=== PATIENT | male | born 1965 | race Caucasian/White ===

== ENCOUNTER → 2023-03-17 10:44 | Outpatient (CLI) | payer OTHER, SELFPAY ==
--- NOTE | ~2023-03-17 | US_ITS ---
EXAMINATION: US scrotum doppler DATE: 03/17/2023 11:10 INDICATION: Right-sided abdominal mass TECHNIQUE: Testicular sonogram utilizing grayscale and Doppler COMPARISON: None. FINDINGS: The right testis measures 4.2 x 3.4 x 2.4 cm. The left testis measures 4.3 x 3.2 x 2.4 cm. There is normal vascular flow to both testes. The right epididymis contains a 1.5 x 1.4 x 1.4 cm cyst or spermatocele. The left epididymis is normal with normal vascular flow. There is no varicocele or hydrocele. IMPRESSION: 1. Cyst or spermatocele of the right epididymis measuring up to 1.5 cm. Reviewed, dictated and finalized at location L.
== END ==
PROVIDERS: PCP Family Medicine; Visit Provider Family Medicine
DX: N50.89 Other specified disorders of the male genital organs (principal)
CPT/HCPCS: 76870; 93976

== ENCOUNTER 2023-04-20 10:47 | Day surgery (SDC) | payer OTHER, SELFPAY ==
[2023-03-18 14:42] VITALS: BMI 34.8
[2023-03-31 09:46] VITALS: BMI 34.4
[2023-04-20 11:17] VITALS: BP 130/95; PULSE 65; RESP 16; TEMP 36.8; O2SAT 100
--- NOTE | 2023-04-20 11:22 | P.HP_ITS ---
History of Present Illness History of Present Illness Consent: Risks, benefits, and alternatives have been discussed and questions answered. Patient agrees to proceed with procedure. Chief complaint: Neoplasm Screening Narrative: Virgil Blanc is a 57 year old male Presents for screening colonoscopy. Patient's current weight appetite is are normal. Patient denies abdominal pain. He has had no bleeding. Family history is noncontributory. Review of Systems Review of Systems: Systems noncontributory. [facility] Past Medical History Medical History (Updated 02/25/23 @ 17:30 by Dominguez Maldonado MD) Anal abscess Epididymal mass Erectile dysfunction Screen for colon cancer Screening for lipid disorders Screening for prostate cancer Family History Family History Father Hypertension Lung cancer Mother No problems noted. Sibling No problems noted. 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 Gender identity (if verbalized by the patient): Male Spiritual care concerns: No Meds Home Medications and Allergies Home Medications Medication Instructions Recorded Confirmed Type sodium,potassium,mag sulfates 17.5 See Rx Instructions PO .COMPLEX 03/18/23 04/20/23 Rx gram-3.13 gram-1.6 gram oral soln #354 mL (Suprep Bowel Prep Kit) sildenafil 100 mg tablet 100 mg PO DAILY PRN sexual 04/13/23 04/20/23 Rx activity #30 tabs Allergies Allergy/AdvReac Type Severity Reaction Status Date / Time No Known Allergies Allergy Verified 04/20/23 11:10 Vital Signs Vital Signs - 24 hr 04/20/23 11:17 Temperature 98.2 F Pulse Rate 65 Respiratory Rate 16 Blood Pressure 130/95 H Pulse Oximetry 100 Oxygen Delivery Room Air Exam Narrative: Physical exam reveals patient be alert. Vital signs stable. HEENT exam is unremarkable. Patient is anicteric. Lungs are clear to auscultation and to percussion. Heart is without murmur or extra sounds. Abdomen bowel sounds present soft nontender with no hepatosplenomegaly. Digital external rectal exam is normal. Assessment and Plan Assessment and plan (1) Screen for colon cancer: Code(s): Z12.11 - Encounter for screening for malignant neoplasm of colon Status: Acute Assessment and Plan: Patient presents for neoplasia screening colonoscopy. He appears to be at average risk for colon polyps. Further recommendations may be get Tracey copy.
--- NOTE | 2023-04-20 11:33 | WPDANESEPPF ---
Anes - Initial Pre Proc Eval Procedure: Operation Date: 04/20/23 14:00 Proposed Procedures p Screening Colonoscopy - Daquan Kothari MD Date/Time: 04/20/23 11:33 Surgeon: Daquan Kothari MD Pre Op Diagnosis: Neoplasm screening Pre Op Diagnosis: Neoplasm Screening Patient Data Age: 57 Gender: M Height: 1.78 m Weight: 106 kg Last Vital Signs Temp 36.8 C 04/20/23 11:17 Pulse 65 04/20/23 11:17 Resp 16 04/20/23 11:17 BP 130/95 H 04/20/23 11:17 Pulse Ox 100 04/20/23 11:17 O2 Del Method Room Air 04/20/23 11:17 Allergies Allergy/AdvReac Type Severity Reaction Status Date / Time No Known Allergies Allergy Verified 04/20/23 11:10 Home Medications Medication Instructions Recorded Confirmed Type sodium,potassium,mag sulfates 17.5 See Rx Instructions PO .COMPLEX 03/18/23 04/20/23 Rx gram-3.13 gram-1.6 gram oral soln #354 mL (Suprep Bowel Prep Kit) sildenafil 100 mg tablet 100 mg PO DAILY PRN sexual 04/13/23 04/20/23 Rx activity #30 tabs Patient hx anesthesia problems: none Family hx anesthesia problems: none Results Review: All pre-operative results and documents have been reviewed as part of the pre-operative evaluation. [facility] Past Medical History Medical History Anal abscess Epididymal mass Erectile dysfunction Screen for colon cancer Screening for lipid disorders Screening for prostate cancer Family History Family History Father Hypertension Lung cancer Mother No problems noted. Sibling No problems noted. 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 Gender identity (if verbalized by the patient): Male Spiritual care concerns: No Anes - Eval Final PreProcedure Day of Procedure 04/20/23 11:33 Patient weight: obese Heart: regular rate and rhythm Lungs: normal air movement Airway: Mallampati scale class II Neurological: alert and oriented Last oral intake: >/= 8 hours ASA classification: II Emergent: no Anesthetic plan: proceed Anesthesia type and monitoring: general GIVS and standard monitoring Results Review: All pre-operative results and documents have been reviewed as part of the pre-operative evaluation. Informed Consent: The patient's anesthetic plan and its attendant risks and benefits were discussed with the patient/family/POA. Questions were solicited and answers provided to the satisfaction of the patient/family/POA.
--- NOTE | 2023-04-20 11:38 | P.PNAN_ITS ---
Anes - Initial Pre Proc Eval Procedure: Operation Date: 04/20/23 14:00 Proposed Procedures p Screening Colonoscopy - Daquan Kothari MD Date/Time: 04/20/23 11:38 Surgeon: Daquan Kothari MD Pre Op Diagnosis: Neoplasm Screening Patient Data Age: 57 Gender: M Height: 1.78 m Weight: 106 kg Last Vital Signs Temp 36.8 C 04/20/23 11:17 Pulse 65 04/20/23 11:17 Resp 16 04/20/23 11:17 BP 130/95 H 04/20/23 11:17 Pulse Ox 100 04/20/23 11:17 O2 Del Method Room Air 04/20/23 11:17 Allergies Allergy/AdvReac Type Severity Reaction Status Date / Time No Known Allergies Allergy Verified 04/20/23 11:10 Home Medications Medication Instructions Recorded Confirmed Type sodium,potassium,mag sulfates 17.5 See Rx Instructions PO .COMPLEX 03/18/23 04/20/23 Rx gram-3.13 gram-1.6 gram oral soln #354 mL (Suprep Bowel Prep Kit) sildenafil 100 mg tablet 100 mg PO DAILY PRN sexual 04/13/23 04/20/23 Rx activity #30 tabs Patient hx anesthesia problems: none Family hx anesthesia problems: none Results Review: All pre-operative results and documents have been reviewed as part of the pre- operative evaluation. [facility] Past Medical History Medical History Anal abscess Epididymal mass Erectile dysfunction Screen for colon cancer Screening for lipid disorders Screening for prostate cancer Family History Family History Father Hypertension Lung cancer Mother No problems noted. Sibling No problems noted. 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 Gender identity (if verbalized by the patient): Male Spiritual care concerns: No Anes - Eval Final PreProcedure Day of Procedure 04/20/23 11:38 Patient weight: obese Heart: regular rate and rhythm Lungs: clear to auscultation Airway: Mallampati scale class II Neurological: alert and oriented Last oral intake: >/= 8 hours ASA classification: II Emergent: no Anesthetic plan: proceed Anesthesia type and monitoring: general GIVS and standard monitoring Results Review: All pre-operative results and documents have been reviewed as part of the pre- operative evaluation. Informed Consent: The patient's anesthetic plan and its attendant risks and benefits were discussed with the patient/family/POA. Questions were solicited and answers provided to the satisfaction of the patient/family/POA.
[2023-04-20 11:57] VITALS: BP 104/78; PULSE 73; RESP 16; O2SAT 98
[2023-04-20] MEDS: LACTATED RINGERS 1,000 ML 150 ML IV CONT (11:57)
[2023-04-20 12:07] VITALS: BP 113/78; PULSE 65; RESP 16; O2SAT 97
--- NOTE | 2023-04-20 12:11 | WPDANESPN ---
Anes - Prog Note Post-Op Date/Time: 04/20/23 12:11 Cardiovascular status: normal Respiratory status: normal Airway patency: baseline Mental status: baseline Post-Op hydration status: normal Vital Signs: Last Vital Signs Temp 36.8 C 04/20/23 11:17 Pulse 73 04/20/23 11:57 Resp 16 04/20/23 11:57 BP 104/78 04/20/23 11:57 Pulse Ox 98 04/20/23 11:57 O2 Del Method Room Air 04/20/23 11:57 Pain Score (VAS): 0 I/O: Intake & Output 04/19/23 04/20/23 04/20/23 23:59 07:59 15:59 Intake Total 350 Balance 350 Patient Feedback: Patient satisfied with anesthetic care.
[2023-04-20 12:17] VITALS: BP 121/84; PULSE 60; RESP 16; O2SAT 97
== END 2023-04-20 12:44 | disposition home or self-care (01) ==
PROVIDERS: PCP Family Medicine; Visit Provider Internal Medicine Gastroenterology
PROC: 0DJD8ZZ Inspection of Lower Intestinal Tract, Via Natural or Artificial Opening Endoscopic (ICD-10-PCS; CPT 45378; principal; 2023-04-20 14:00)
DX: Z12.11 Encounter for screening for malignant neoplasm of colon (principal); K64.8 Other hemorrhoids
CPT/HCPCS: 45378

== ENCOUNTER 2024-04-05 08:33 | Day surgery (SDC) | payer OTHER, SELFPAY ==
[2024-03-25 07:17] VITALS: BMI 34.7
[2024-03-29 10:20] VITALS: BMI 34.4
--- NOTE | 2024-04-05 07:11 | P.PNAN_ITS ---
Anes - Initial Pre Proc Eval Procedure: Operation Date: 04/05/24 10:30 Proposed Procedures p Esophagogastroduodenoscopy - Daquan Kothari MD Date/Time: 04/05/24 07:11 Surgeon: Daquan Kothari MD Pre Op Diagnosis: Dysphagia,unspecified. Patient Data Age: 58 Gender: M Height: 1.78 m Weight: 109 kg Allergies Allergy/AdvReac Type Severity Reaction Status Date / Time No Known Allergies Allergy Verified 04/05/24 09:05 Home Medications Medication Instructions Recorded Confirmed Type tadalafil 5 mg tablet 10 mg PO DIRECTED 03/25/24 04/05/24 History citrulline 600 mg capsule 3 g PO BID 03/29/24 04/05/24 History Patient hx anesthesia problems: none Family hx anesthesia problems: none Results Review: All pre-operative results and documents have been reviewed as part of the pre- operative evaluation. [facility] Past Medical History Medical History (Updated 03/22/24 @ 09:34 by Miladys Ruiz APRN) Anal abscess Dysphagia Encounter for wellness examination Epididymal mass Erectile dysfunction Male hypogonadism Screen for colon cancer Screening for lipid disorders Screening for prostate cancer Family History Family History Father Hypertension Lung cancer Mother No problems noted. Sibling No problems noted. 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 Gender identity (if verbalized by the patient): Male Spiritual care concerns: No Anes - Eval Final PreProcedure Day of Procedure 04/05/24 07:11 Patient weight: obese Heart: regular rate and rhythm Lungs: clear to auscultation Airway: Mallampati scale class II Neurological: alert and oriented Last oral intake: >/= 8 hours ASA classification: II Emergent: no Anesthetic plan: proceed Anesthesia type and monitoring: general GIVS and standard monitoring Results Review: All pre-operative results and documents have been reviewed as part of the pre- operative evaluation. Informed Consent: The patient's anesthetic plan and its attendant risks and benefits were discussed with the patient/family/POA. Questions were solicited and answers provided to the satisfaction of the patient/family/POA.
[2024-04-05 09:06] VITALS: BP 144/87; PULSE 65; RESP 17; TEMP 37.1; O2SAT 100
[2024-04-05] MEDS: LACTATED RINGERS 1,000 ML 150 ML IV CONT (09:09)
--- NOTE | 2024-04-05 09:34 | PM.HPGS ---
History of Present Illness History of Present Illness Consent: Risks, benefits, and alternatives have been discussed and questions answered. Patient agrees to proceed with procedure. Chief complaint: Dysphagia,unspecified. Narrative: Virgil Blanc is a 58 year old male presents for EGD. Patient reports for 1 year has had intermittent difficulty with food catching in the throat. He will be swallow until it passes. He denies any heartburn. Patient has had no bleeding or weight loss. Referred today for endoscopic evaluation. Family history noncontributory. Review of Systems Review of Systems: All systems reviewed & are unremarkable except as noted in HPI and below PMFSH Past Medical History Medical History (Updated 03/22/24 @ 09:34 by Miladys Ruiz APRN) Anal abscess Dysphagia Encounter for wellness examination Epididymal mass Erectile dysfunction Male hypogonadism Screen for colon cancer Screening for lipid disorders Screening for prostate cancer Family History Family History Father Hypertension Lung cancer Mother No problems noted. Sibling No problems noted. 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 Gender identity (if verbalized by the patient): Male Spiritual care concerns: No Meds Home Medications and Allergies Home Medications Medication Instructions Recorded Confirmed Type tadalafil 5 mg tablet 10 mg PO DIRECTED 03/25/24 04/05/24 History citrulline 600 mg capsule 3 g PO BID 03/29/24 04/05/24 History Allergies Allergy/AdvReac Type Severity Reaction Status Date / Time No Known Allergies Allergy Verified 04/05/24 09:05 Vital Signs Vital Signs - 24 hr 04/05/24 09:06 Temperature 98.8 F Pulse Rate 65 Respiratory Rate 17 Blood Pressure 144/87 H Pulse Oximetry 100 Oxygen Delivery Room Air Exam Narrative: Physical exam reveals patient to be alert. Vital stable. HEENT exam is unremarkable. Patient is anicteric. Lungs are clear to auscultation and percussion. Heart is without murmur or extra sounds. Abdomen bowel sounds are present soft nontender with no organomegaly. Digital external rectal exam normal. Assessment and Plan Assessment and plan (1) Dysphagia: Code(s): R13.10 - Dysphagia, unspecified Status: Acute Assessment and Plan: Patient presents for dysphagia. There is a suspicion of esophageal narrowing. Plan for assess more thoroughly. Possibly for dilatation. Further recommendations may be given after endoscopy.
[2024-04-05 11:17] VITALS: BP 124/85; PULSE 66; RESP 14; O2SAT 100
--- NOTE | 2024-04-05 11:20 | WPDANESPN ---
Anes - Prog Note Post-Op Date/Time: 04/05/24 11:20 Cardiovascular status: normal Respiratory status: normal Airway patency: baseline Mental status: baseline Post-Op hydration status: normal Vital Signs: Last Vital Signs Temp 37.1 C 04/05/24 09:06 Pulse 65 04/05/24 09:06 Resp 17 04/05/24 09:06 BP 144/87 H 04/05/24 09:06 Pulse Ox 100 04/05/24 09:06 O2 Del Method Room Air 04/05/24 09:06 Pain Score (VAS): 0 I/O: Intake & Output 04/04/24 04/05/24 04/05/24 23:59 07:59 15:59 Intake Total 600 Balance 600 Post-procedural complaints: none Patient Feedback: Patient satisfied with anesthetic care. Other Findings: Patient vital signs back to baseline. Patient denies nausea and vomiting. Patient's pain under control. Patient OK for discharge.
[2024-04-05 11:27] VITALS: BP 119/89; PULSE 61; RESP 16; O2SAT 98
[2024-04-05 11:37] VITALS: BP 122/92; PULSE 64; RESP 20; O2SAT 99
== END 2024-04-05 11:54 | disposition home or self-care (01) ==
PROVIDERS: PCP Family Medicine; Visit Provider Internal Medicine Gastroenterology
PROC: 0DJ08ZZ Inspection of Upper Intestinal Tract, Via Natural or Artificial Opening Endoscopic (ICD-10-PCS; CPT 43235; principal; 2024-04-05 10:30)
DX: K22.2 Esophageal obstruction (principal); R13.19 Other dysphagia; K21.00 Gastro-esophageal reflux disease with esophagitis, without bleeding
CPT/HCPCS: 43249

== ENCOUNTER 2024-06-23 06:30 | Day surgery (SDC) | payer OTHER, SELFPAY ==
[2024-06-06 11:27] VITALS: BMI 34.7
[2024-06-23 07:13] VITALS: BP 122/83; PULSE 73; RESP 18; TEMP 37; O2SAT 100
--- NOTE | 2024-06-23 07:14 | P.PNAN_ITS ---
Anes - Initial Pre Proc Eval Procedure: Operation Date: 06/23/24 08:30 Proposed Procedures p Esophagogastroduodenoscopy - Daquan Kothari MD Date/Time: 06/23/24 07:14 Surgeon: Daquan Kothari MD Pre Op Diagnosis: Esophageal Stricture Patient Data Age: 58 Gender: M Height: 1.78 m Weight: 111.85 kg Last Vital Signs Temp 37.0 C 06/23/24 07:13 Pulse 73 06/23/24 07:13 Resp 18 06/23/24 07:13 BP 122/83 06/23/24 07:13 Pulse Ox 100 06/23/24 07:13 O2 Del Method Room Air 06/23/24 07:13 Allergies Allergy/AdvReac Type Severity Reaction Status Date / Time No Known Allergies Allergy Verified 06/23/24 07:12 Home Medications Medication Instructions Recorded Confirmed Type tadalafil 5 mg tablet 10 mg PO DIRECTED 03/25/24 06/23/24 History citrulline 600 mg capsule 3 g PO BID 03/29/24 06/23/24 History pantoprazole 40 mg tablet,delayed 40 mg PO QAM #30 tabs 04/05/24 06/23/24 Rx release testosterone cypionate 200 mg/mL 200 mg IM DIRECTED #2 mL 04/29/24 06/23/24 Rx intramuscular oil (Depo-Testosterone) Patient hx anesthesia problems: none Family hx anesthesia problems: none Results Review: All pre-operative results and documents have been reviewed as part of the pre- operative evaluation. [facility] Past Medical History Medical History Anal abscess Dysphagia Encounter for wellness examination Epididymal mass Erectile dysfunction Hypogonadism Male hypogonadism Screen for colon cancer Screening for lipid disorders Screening for prostate cancer Family History Family History Father Hypertension Lung cancer Mother No problems noted. Sibling No problems noted. 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 Gender identity (if verbalized by the patient): Male Spiritual care concerns: No Anes - Eval Final PreProcedure Day of Procedure 06/23/24 07:14 Patient weight: obese Heart: regular rate and rhythm Lungs: clear to auscultation Airway: Mallampati scale class II Neurological: alert and oriented Last oral intake: >/= 8 hours ASA classification: II Emergent: no Anesthetic plan: proceed Anesthesia type and monitoring: general GIVS and standard monitoring Results Review: All pre-operative results and documents have been reviewed as part of the pre- operative evaluation. Informed Consent: The patient's anesthetic plan and its attendant risks and benefits were discussed with the patient/family/POA. Questions were solicited and answers provided to the satisfaction of the patient/family/POA.
[2024-06-23] MEDS: LACTATED RINGERS 1,000 ML 150 ML IV CONT (07:18)
--- NOTE | 2024-06-23 08:08 | PM.HPGS ---
History of Present Illness History of Present Illness Consent: Risks, benefits, and alternatives have been discussed and questions answered. Patient agrees to proceed with procedure. Chief complaint: Esophageal Stricture Narrative: Virgil Blanc is a 58 year old male presents for follow-up EGD. History of esophageal stricture. EGD today revealed relatively tight esophageal stricture that was dilated. Since that time patient has been maintained on pantoprazole 40mg p.o. daily. He states that he he now only intermittently has difficulty with food passing. Patient denies any heartburn. He has had no weight loss or bleeding. Previous dysphagia symptoms had lasted for at least 1 year prior to dilatation. Patient returns today for additional dilatation of esophageal stricture. Review of Systems Review of Systems: All systems reviewed & are unremarkable except as noted in HPI and below PMFSH Past Medical History Medical History Anal abscess Dysphagia Encounter for wellness examination Epididymal mass Erectile dysfunction Hypogonadism Male hypogonadism Screen for colon cancer Screening for lipid disorders Screening for prostate cancer Family History Family History Father Hypertension Lung cancer Mother No problems noted. Sibling No problems noted. 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 Gender identity (if verbalized by the patient): Male Spiritual care concerns: No Meds Home Medications and Allergies Home Medications Medication Instructions Recorded Confirmed Type tadalafil 5 mg tablet 10 mg PO DIRECTED 03/25/24 06/23/24 History citrulline 600 mg capsule 3 g PO BID 03/29/24 06/23/24 History pantoprazole 40 mg tablet,delayed 40 mg PO QAM #30 tabs 04/05/24 06/23/24 Rx release testosterone cypionate 200 mg/mL 200 mg IM DIRECTED #2 mL 04/29/24 06/23/24 Rx intramuscular oil (Depo-Testosterone) Allergies Allergy/AdvReac Type Severity Reaction Status Date / Time No Known Allergies Allergy Verified 06/23/24 07:12 Vital Signs Vital Signs - 24 hr 06/23/24 07:13 Temperature 98.6 F Pulse Rate 73 Respiratory Rate 18 Blood Pressure 122/83 Pulse Oximetry 100 Oxygen Delivery Room Air Exam Narrative: Physical exam reveals patient to be alert. Vital signs stable. HEENT exam is unremarkable. Patient is anicteric. Lungs are clear to auscultation and to percussion. Heart is without murmur or extra sounds. Abdomen bowel sounds are present soft nontender with no organomegaly. Assessment and Plan Assessment and plan (1) GERD with stricture: Code(s): K21.9 - Gastro-esophageal reflux disease without esophagitis; K22.2 - Esophageal obstruction Status: Acute Assessment and Plan: Patient known to have stricture on the basis of underlying acid reflux. Plan for follow-up EGD at this time with additional dilatation. Long-term anti-reflux measures in use of pantoprazole is advised. Further recommendations may be given after endoscopy. (2) Dysphagia: Code(s): R13.10 - Dysphagia, unspecified Status: Acute
[2024-06-23 08:35] VITALS: BP 107/78; PULSE 61; RESP 16; O2SAT 95
[2024-06-23 08:45] VITALS: BP 114/67; PULSE 53; RESP 16; O2SAT 96
[2024-06-23 08:55] VITALS: BP 111/79; PULSE 55; RESP 15; O2SAT 93
--- NOTE | 2024-06-23 09:02 | WPDANESPN ---
Anes - Prog Note Post-Op Date/Time: 06/23/24 09:02 Cardiovascular status: normal Respiratory status: normal Airway patency: baseline Mental status: baseline Post-Op hydration status: normal Vital Signs: Last Vital Signs Temp 37.0 C 06/23/24 07:13 Pulse 53 L 06/23/24 08:45 Resp 16 06/23/24 08:45 BP 114/67 06/23/24 08:45 Pulse Ox 96 06/23/24 08:45 O2 Del Method Room Air 06/23/24 08:45 Pain Score (VAS): 0/10 I/O: Intake & Output 06/22/24 06/23/24 06/23/24 23:59 07:59 15:59 Intake Total 200 Balance 200 Patient Feedback: Patient satisfied with anesthetic care.
== END 2024-06-23 09:10 | disposition home or self-care (01) ==
PROVIDERS: PCP Family Medicine; Visit Provider Internal Medicine Gastroenterology
PROC: 0DJ08ZZ Inspection of Upper Intestinal Tract, Via Natural or Artificial Opening Endoscopic (ICD-10-PCS; CPT 43235; principal; 2024-06-23 08:30)
DX: K22.2 Esophageal obstruction (principal); R13.19 Other dysphagia; K21.9 Gastro-esophageal reflux disease without esophagitis
CPT/HCPCS: 43249

== ENCOUNTER 2025-02-27 12:31 | Emergency (ER) | payer OTHER, SELFPAY ==
[2025-02-27] VITALS (9 sets, daily range): BP systolic 141; BP diastolic 93; PULSE 75; RESP 16; TEMP 36.3; O2SAT 92–98
--- NOTE | ~2025-02-27 | CT_ITS ---
CLINICAL INDICATION: Right lower quadrant pain with urinary frequency COMPARISON: None. TECHNIQUE: Multiple contiguous axial images of the abdomen and pelvis were performed following the ad ministration of with 100 mL Omnipaque-350 intravenous contrast The dose-length product (DLP) was 1318.38 mGy-cm. Automated exposure control and iterative reconstruction technique were employed. FINDINGS/OBSERVATIONS: Visualized lower thorax: The bilateral lung bases are clear. The heart is of normal size, without pericardial effusion. Small hiatal hernia is present. Liver: The liver demonstrates homogeneous enhancement and is not enlarged . Gallbladder and biliary system: The gallbladder is only minimally distended, and otherwise unremarkable. Pancreas: The pancreas enhances homogeneously without ductal dilatation. Spleen: The spleen enhances homogeneously and is not enlarged. Kidneys: Global enlargement of the right kidney. Right sided hydroureteronephrosis extending to the distal right ureter (at the right ureterovesicular junction) where a 4 mm calculus is present. A well-circumscribed 19 mm focus of fluid attenuation is identified within the upper pole of the left kidney. The remainder of the left kidney is unremarkable, without hydroureteronephrosis or an obstructing saleem culus. Adrenal glands: Unremarkable. Gastrointestinal tract: Fecal stasis within the colon. Appendix: The air-filled appendix is of normal caliber (axial series, images 110 through 118) Vasculature: Unremarkable. Lymph nodes: No pathologically enlarged or morphologically suspicious lymph nodes within the retroperitoneum or at the root of the mesentery. Pelvic structures: The bladder is decompressed, limiting its evaluation. The prostate gland is not enlarged. Body wall and musculoskeletal: Small fat-containing umbilical hernia. Age-appropriate degenerative disease within the lower thoracic and lumbosacral spine. IMPRESSION: Right-sided hydroureteronephrosis secondary to a 4 mm calculus at the right UVJ. Reviewed, dictated and finalized at location A. IMPRESSION: Right-sided hydroureteronephrosis secondary to a 4 mm calculus at the right UVJ .
--- OUTSIDE RECORDS SUMMARY | 2025-02-27 12:33 | XMS_ITS | Continuity of Care Document ---
Author Organization [facility] Address [address] [place] [address] Phone Care Team Providers Care Pipeline Integrity Engineer Name Role Phone Nurse, Registered Unavailable Unavailable Procedures Procedure Date Immunization Admin COVID19 Moderna Low D ose COVID19 Vaccine Moderna Immunization Admin COVID19 Moderna Low D ose COVID19 Vaccine Moderna Immunization Admin COVID19 Moderna Dose 2 COVID19 Vaccine Moderna Immunization Admin COVID19 Moderna Dose 2 Advance Directives Directive Yes / No Effective Date File Name No Information Encounters Encounter Description Practice Location Reason(s) For Visit Diagnoses Date Provider Providers Copied on Encounter [facility] , [address], [id number], tel:[phone] COVID Mobile COVID (chief complaint) No Information Nurse Registered . [address], [id number], . tel:[phone] [facility] , [address] [place] [address], [id number], tel:[phone] COVID Mobile COVID (chief complaint) No Information Nurse Registered . [address], [id number], . tel:[phone] Referring Provider: Jacqueline Sotelo, [facility] [address] [place] [address], [address]. tel:[phone] [facility] , [address], [id number], tel:[phone] COVID Mobile COVID (chief complaint) No Information Ashleigh Phillips. [address], [place], [place], [id number], [place]. tel:[phone] Referring Provider: Jacqueline Sotelo, [address], [place], [address]. tel:[phone] Family History Family Member Type Diagnosis Age At Onset No Information Immunizations Vaccine Date Status Comments COVID-19 Moderna administered Note: Pt to lerated well admin by Spencer Gupta MA ; Source: New Immunization Record COVID-19 Moderna administered Note: Pt to lerated well administered by Marina Trevizo RN ; Source: New Immunization Record COVID-19 Moderna administered Note: Pt to lerated well administered by Janet THOMPSON ; Source: New Immunization Record Payers Payer name Insurance type Covered republican ID Authoriza tion(s) [facility] CI [id number] [facility] CI [id number] [facility] CI [id number] Social History Type Description Quantity Date Captured Comments Sex Male Smoking Status No Information Chief Complaint And Reason For Visit From encounter dated '08/22/2021 09:00'. COVID (chief complaint). Description: COVID-19 Moderna [id number] Administered New 08/23/2021 08/22/2021 11:52 AM Don Tejada 0.25 [id number] Booster 10/28/2021 [employer] Intramuscular Left Deltoid Pt tolerated well admin by Don Mixon MA, Celsey (08/23/2021) Reason For Referral Reason For Referral No Information History Of Present Illness Encounter Date Complaint History Of Prese nt Illness COVID COVID-19 Moderna [id number] Administered New 08/23/2021 08/22/2021 11:52 AM Don Tejada 0.25 [id number] Booster 10/28/2021 [employer] Intramuscular Left Deltoid Pt tolerated well admin by Don Mixon MA, Celsey (08/23/2021) COVID COVID-19 Moderna 207 [id number] Administered New 12/14/2020 12/14/2020 02:38 PM Don Tejada 0.5 [id number] Dose 2 05/07/2021 [employer] Intramuscular Left Deltoid Pt tolerated well administered by Marina Trevizo RN, Celsey Brown, Celsey (12/14/2020) COVID COVID-19 Moderna 207 [id number] Administered New 11/16/2020 11/16/2020 04:59 PM Teena Alejandro LPN 0.5 [id number] Dose 1 04/25/2021 [employer] Intramuscular Left Deltoid Pt tolerated well administered by Don Booker LPN, Celsey (11/16/2020) Functional Status Date Functional Assessmen t No Information Instructions Date Instruction Additional Infor mation No Information Assessments Type Assessment Date No Information Patient Care Teams Name Effective Dates (start - stop) Status Members No Information
--- OUTSIDE RECORDS SUMMARY | 2025-02-27 12:33 | XMS_ITS | Clinical Summary ---
Author Organization [facility] Address [address] [place] [address] Care Team Providers Care Small Arms Artillery Repairer Name Role Phone Unknown, Provider Primary Care Provider Unavaila ble Source Comments [facility],non-owned Affiliates and Associated Physician Practices is amultiple site organization consisting of ambulatory clinics and hospital sitesin [place] and [place]. This disclosure is being madepursuant to the Care Everywhere program and may not contain all information available regarding this patient. Last updated 18.[facility] Allergies No known active allergies Medications * Be aware that medications may not be up to date on this document. Alwaysverify current medications with the patient. 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 Gender Identity Not on file Sexual Orientation Not on file Last Filed Vital Signs Vital Sign Reading Time Taken Comments Blood Pressure 128/80 04/12/2019 11:32 AM CDT Pulse 84 04/12/2019 11:32 AM CDT Temperature 36.9 C (98.4 F) 04/12/2019 11:32 AM CDT Respiratory Rate 19 04/12/2019 11:32 AM CDT Oxygen Saturation - - Inhaled Oxygen Concentration - - Weight 122.5 kg (270 lb) 04/12/2019 11:32 AM CDT Height 180.3 cm (5' 11) 04/12/2019 11:32 AM CDT Body Mass Index 37.66 04/12/2019 11:32 AM CDT Plan of Treatment Health Maintenance Due Date Last Done Comments COLOGUARD (AGES 45-75) - COL ON CA SCREENING 1965 COLON MONITORING 1965 COLONOSCOPY - COLON CA SCREENING 1965 CT COLONOGRAPHY - COLON CA SCREENING 1965 Colorectal Cancer Screening 1965 FIT - COLON CA SCREENING 1965 FLEX SIG - COLON CA SCREENING 1965 LIPID TESTING 1965 HIV SCREENING 1980 HEPATITIS C SCREENING 11/25/1983 DTAP/TDAP/TD VACCINES (1 - Tdap) 1984 HEPATITIS B VACCINE (1 of 3 - 19+ 3-dose series) 1984 PNEUMOCOCCAL VACCINE 50+ (1 of 1 - PCV) 11/30/2015 ZOSTER VACCINE (1 of 2) 11/30/2015 SCREENING FOR DIABETES 04/12/2019 COVID-19 VACCINE (1 - 2023-2 5 season) 2024 DEPRESSION SCREENING 08/03/2024 INFLUENZA VACCINE (#1) 2025 HIB VACCINE Aged Out No longer eligi ble based on patient's age to complete this topic HPV VACCINE Aged Out No longer eligi ble based on patient's age to complete this topic MENINGOCOCCAL (Group B) VACC INE SHARED DECISION-MAKING Aged Out No longer eligibl e based on patient's age to complete this topic MENINGOCOCCAL GROUPS A/C/Y/W VACCINE Aged Out No longer eligible b ased on patient's age to complete this topic Insurance [facility] Care Teams Small Arms Artillery Repairer Relationship Specialty Start Date End Date Unknown, Provider PCP - General 08/23/16
--- NOTE | 2025-02-27 13:18 | ED.ABDPAIN ---
HPI - Abdominal Pain General Chief Complaint: Abdominal Pain <Aym Benitez SUPERVISOR REMELT - Last Filed: 02/27/25 13:50> Stated Complaint: R sided abd pain <Amy Benitez SUPERVISOR REMELT - Last Filed: 02/27/25 13:50> Time Seen by Provider: 02/27/25 13:10 <Amy Benitez SUPERVISOR REMELT - Last Filed: 02/27/25 13:50> Focused HPI: Patient is a 59-year-old male who presents to the ER with complaints of right flank pain and right lower quadrant abdominal pain. He reports his pain started last night. Patient reports he has had a kidney stone in the past but it was over 10 years ago. He reports he takes ?Penzone to treat his reflux. Patient reports he does have a primary care provider. He denies any chest pain, shortness of breath, urinary symptoms, or recent fevers. GENERAL: Well-appearing, well-nourished, and in no acute distress. HEAD: Normocephalic, atraumatic. CHEST: Clear to auscultation. ?No respiratory distress. HEART: Regular rate and rhythm.? NEURO: ?Alert and oriented x3. Patient screened in triage and initial orders placed.? ?Additional care and disposition to be based upon?diagnostic testing and treatment. <Amy Benitez, SUPERVISOR REMELT - Last Filed: 02/27/25 13:50> Focused HPI: Patient is a 59-year-old male who presents to the ER with complaints of right flank pain and right lower quadrant abdominal pain. He reports his pain started last night. Patient reports he has had a kidney stone in the past but it was over 10 years ago. He reports he takes Pantoprazole to treat his reflux. Patient reports he does have a primary care provider. He denies any chest pain, shortness of breath, urinary symptoms, or recent fevers. GENERAL: Well-appearing, well-nourished, and in no acute distress. HEAD: Normocephalic, atraumatic. CHEST: Clear to auscultation. ?No respiratory distress. HEART: Regular rate and rhythm.? NEURO: ?Alert and oriented x3. Patient screened in triage and initial orders placed.? ?Additional care and disposition to be based upon?diagnostic testing and treatment. <Hoa Kumari PA-C - Last Filed: 02/27/25 19:41> Related Data Home Medications: Home Medications ?Medication ?Instructions ?Recorded ?Confirmed ?Last Taken ?Type tadalafil 5 mg tablet 10 mg PO DIRECTED 03/25/24 06/23/24 Unknown History citrulline 600 mg capsule 3 g PO BID 03/29/24 06/23/24 Unknown History <Amy Benitez APRN - Last Filed: 02/27/25 13:50> Allergies/Adverse Reactions: Allergies Allergy/AdvReac Type Severity Reaction Status Date / Time No Known Allergies Allergy Verified 06/23/24 07:12 <Amy Benitez APRN - Last Filed: 02/27/25 13:50> Review of Systems Review of Systems: All systems reviewed & are unremarkable except as noted in HPI and below <Hoa Kumari PA-C - Last Filed: 02/27/25 19:41> [facility] Past Medical History Medical History: Medical History (Updated 02/27/25 @ 19:36 by Hoa Kumari PA-C) Male hypogonadism Dysphagia Encounter for wellness examination Screen for colon cancer Screening for prostate cancer Screening for lipid disorders Erectile dysfunction Epididymal mass Anal abscess <Amy Bneitez APRN - Last Filed: 02/27/25 13:50> Family History Family History: Family History Father Hypertension Lung cancer Mother No problems noted. Sibling No problems noted. Son Non-Hodgkins lymphoma <Amy Benitez APRN - Last Filed: 02/27/25 13:50> Social History Social History: Social History Smoking status: Never smoker Second hand tobacco smoke exposure: Yes Alcohol intake: never Substance use: never Substance use type: does not use Do You Feel Safe in your Home?: Yes Lack of Transportation: No Lack of Food: Never True Current Housing: I Have Housing Concerned About Future Housing: No Difficulty Paying Gas/Electric Bills: No Difficulty Paying for Meds: No Currently Unemployed: No Education: Bachelor's Degree Difficulty w/ Childcare or Family Care: No Living arrangements: alone Occupation/Education: occupation 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 Gender identity (if verbalized by the patient): Male Spiritual care concerns: No <Amy Benitez APRN - Last Filed: 02/27/25 13:50> Exam Narrative: GENERAL: Well-appearing, well-nourished, and in no acute distress. HEAD: Normocephalic, atraumatic. EYES: EOMI. CHEST: Clear to auscultation. No respiratory distress. No wheezes rales or rhonchi HEART: Regular rate and rhythm. No murmur heard. Normal peripheral pulses. ABDOMEN: Soft, nontender, nondistended, normal active bowel sounds. EXTREMITIES: Normal range of motion. No edema. SKIN: Warm, dry, no rash. NEURO: No focal deficits. Alert and oriented x3. PSYCH: Normal mood and affect <GARRY Suazo Last Filed: 02/27/25 19:41> Course Course Emergency Course: patient updated on his workup, resting comfortably <GARRY Suazo Last Filed: 02/27/25 19:41> Vital Signs Vital signs: Vital Signs Temperature 97.3 F L 02/27/25 13:05 Pulse Rate 75 02/27/25 13:05 Respiratory Rate 16 02/27/25 13:05 Blood Pressure 141/93 H 02/27/25 13:05 Pulse Oximetry 98 02/27/25 13:05 Oxygen Delivery Room Air 02/27/25 13:05 Temperature 97.3 F L 02/27/25 13:05 Pulse Rate 75 02/27/25 13:05 Respiratory Rate 16 02/27/25 13:05 Blood Pressure 141/93 H 02/27/25 13:05 Pulse Oximetry 98 02/27/25 13:05 Oxygen Delivery Room Air 02/27/25 13:05 <Amy Benitez APRN - Last Filed: 02/27/25 13:50> Vital Signs Temperature 97.3 F L 02/27/25 13:05 Pulse Rate 75 02/27/25 13:05 Respiratory Rate 16 02/27/25 13:05 Blood Pressure 141/93 H 02/27/25 13:05 Pulse Oximetry 98 02/27/25 13:05 Oxygen Delivery Room Air 02/27/25 13:05 Temperature 97.3 F L 02/27/25 13:05 Pulse Rate 75 02/27/25 13:05 Respiratory Rate 16 02/27/25 13:05 Blood Pressure 141/93 H 02/27/25 13:05 Pulse Oximetry 98 02/27/25 13:05 Oxygen Delivery Room Air 02/27/25 13:05 <Hoa Kumari PA-C - Last Filed: 02/27/25 19:41> MDM - Abdominal Pain MDM Narrative Medical decision making narrative: Patient presents emergency department for right-sided abdominal pain. He is afebrile and nontoxic appearing. His vitals are stable. Cbc without leukocytosis. Metabolic panel normal kidney function. Urine with red blood cells. CT abdomen pelvis shows a 4 mm right UVJ stone. Patient updated on his workup. Resting comfortably. He is to follow up with his urologist. He was given warnings to return to the ER <Hoa Kumari PA-C - Last Filed: 02/27/25 19:41> Differential Diagnosis Differential diagnosis: Likely acute appendicitis, calculus of kidney and diverticulitis <Hoa Kumari PA-C - Last Filed: 02/27/25 19:41> Lab Data Attestation: I reviewed the patient's lab results. <Hoa Kumari PA-C - Last Filed: 02/27/25 19:41> Result diagrams: 02/27/25 13:19 02/27/25 13:19 <Amy Benitez APRN - Last Filed: 02/27/25 13:50> Labs: Lab Results 02/27/25 Range/Units 13:19 WBC 6.2 (4.5-10.0) K/mm3 RBC 5.88 (4.6-6.20) M/mm3 Hgb 16.5 (14.0-18.0) g/dL Hct 50.1 (42.0-52.0) % MCV 85.2 (80-100) fl MCH 28.1 (26-34) pg MCHC 32.9 (32-36) g/dl RDW 14.3 (11.5-14.5) % Plt Count 228 (150-375) k/mm3 MPV 9.7 (7.4-10.4) fl Immature Gran % (Auto) 0.5 (0-0.5) % Neut % (Auto) 69.9 (45.5-73.1) % Lymph % (Auto) 21.8 (18.3-44.2) % [place] % (Auto) 4.7 (2.6-8.5) % Eos % (Auto) 2.4 (0-4.4) % Baso % (Auto) 0.7 (0.2-1.2) % Lymph # (Auto) 1.34 (0.9-3.2) K/mm3 [place] # (Auto) 0.3 (0.1-0.6) K/mm3 Eos # (Auto) 0.2 (0-0.3) K/mm3 Baso # (Auto) 0.0 (0.0-0.1) K/mm3 Abs Immat Gran (auto) 0.03 (0.00-0.031) K/mm3 Absolute Neuts (auto) 4.3 (1.3-6.7) K/mm3 Absolute Nucleated RBC 0.000 (0.0-0.012) K/mm3 Nucleated RBC % 0.0 (0.0-0.2) % Sodium 138 (137-145) mmol/L Potassium 4.2 (3.4-5.0) mmol/L Chloride 105 (98-107) mmol/L Carbon Dioxide 26 (22-30) mmol/L Anion Gap 7 (4-12) mmol/L BUN 14 (9-20) mg/dL Creatinine 1.20 (0.7-1.3) mg/dL Estim Creat Clear Calc 75 ml/min Estimated GFR > 60 (59 - ) Glucose 118 H (65-110) mg/dL Calcium 9.0 (8.4-10.2) mg/dL Total Bilirubin 0.8 (0.2-1.3) mg/dL AST 28 (17-59) U/L ALT 20 (6-50) U/L Alkaline Phosphatase 48 (38-126) U/L Total Protein 7.6 (6.3-8.2) g/dL Albumin 4.4 (3.5-5.1) g/dL Lipase 73 (23-300) U/L Urine Color Yellow (Yellow) Urine Appearance Clear (Clear) Urine pH 5.0 (5.0-9.0) Ur Specific [place] 1.028 (1.001-1.035) Urine Protein Trace (Negative) mg/dL Urine Glucose (UA) Negative (Negative) mg/dL Urine Ketones Trace H (Negative) mg/dL Ur Blood (Man) 3+ H (Negative) Urine Nitrate Negative (Negative) Urine Bilirubin Negative (Negative) Urine Urobilinogen 1.0 (<2.0) mg/dL Leukocyte Esterase Rfl Negative (Negative) ZAK/UL Urine RBC 51-100 H (0-2) /hpf Urine WBC 0-5 (0-3) /hpf Ur Squamous Epith Cells None seen (Few) /hpf Urine Bacteria None seen /hpf Urine Casts 0-2 <Amy Benitez, SUPERVISOR REMELT - Last Filed: 02/27/25 13:50> Lab Results 02/27/25 Range/Units 13:19 WBC 6.2 (4.5-10.0) K/mm3 RBC 5.88 (4.6-6.20) M/mm3 Hgb 16.5 (14.0-18.0) g/dL Hct 50.1 (42.0-52.0) % MCV 85.2 (80-100) fl MCH 28.1 (26-34) pg MCHC 32.9 (32-36) g/dl RDW 14.3 (11.5-14.5) % Plt Count 228 (150-375) k/mm3 MPV 9.7 (7.4-10.4) fl Immature Gran % (Auto) 0.5 (0-0.5) % Neut % (Auto) 69.9 (45.5-73.1) % Lymph % (Auto) 21.8 (18.3-44.2) % [place] % (Auto) 4.7 (2.6-8.5) % Eos % (Auto) 2.4 (0-4.4) % Baso % (Auto) 0.7 (0.2-1.2) % Lymph # (Auto) 1.34 (0.9-3.2) K/mm3 [place] # (Auto) 0.3 (0.1-0.6) K/mm3 Eos # (Auto) 0.2 (0-0.3) K/mm3 Baso # (Auto) 0.0 (0.0-0.1) K/mm3 Abs Immat Gran (auto) 0.03 (0.00-0.031) K/mm3 Absolute Neuts (auto) 4.3 (1.3-6.7) K/mm3 Absolute Nucleated RBC 0.000 (0.0-0.012) K/mm3 Nucleated RBC % 0.0 (0.0-0.2) % Sodium 138 (137-145) mmol/L Potassium 4.2 (3.4-5.0) mmol/L Chloride 105 (98-107) mmol/L Carbon Dioxide 26 (22-30) mmol/L Anion Gap 7 (4-12) mmol/L BUN 14 (9-20) mg/dL Creatinine 1.20 (0.7-1.3) mg/dL Estim Creat Clear Calc 75 ml/min Estimated GFR > 60 (59 - ) Glucose 118 H (65-110) mg/dL Calcium 9.0 (8.4-10.2) mg/dL Total Bilirubin 0.8 (0.2-1.3) mg/dL AST 28 (17-59) U/L ALT 20 (6-50) U/L Alkaline Phosphatase 48 (38-126) U/L Total Protein 7.6 (6.3-8.2) g/dL Albumin 4.4 (3.5-5.1) g/dL Lipase 73 (23-300) U/L Urine Color Yellow (Yellow) Urine Appearance Clear (Clear) Urine pH 5.0 (5.0-9.0) Ur Specific [place] 1.028 (1.001-1.035) Urine Protein Trace (Negative) mg/dL Urine Glucose (UA) Negative (Negative) mg/dL Urine Ketones Trace H (Negative) mg/dL Ur Blood (Man) 3+ H (Negative) Urine Nitrate Negative (Negative) Urine Bilirubin Negative (Negative) Urine Urobilinogen 1.0 (<2.0) mg/dL Leukocyte Esterase Rfl Negative (Negative) ZAK/UL Urine RBC 51-100 H (0-2) /hpf Urine WBC 0-5 (0-3) /hpf Ur Squamous Epith Cells None seen (Few) /hpf Urine Bacteria None seen /hpf Urine Casts 0-2 <Hoa Kumari PA-C - Last Filed: 02/27/25 19:41> Imaging Data Radiologist's impression: ITS Impressions Abdomen/Pelvis CT 02/27/25 18:11 IMPRESSION: Right-sided hydroureteronephrosis secondary to a 4 mm calculus at the right UVJ. <Amy Benitez APRN - Last Filed: 02/27/25 13:50> ITS Impressions Abdomen/Pelvis CT 02/27/25 18:11 IMPRESSION: Right-sided hydroureteronephrosis secondary to a 4 mm calculus at the right UVJ. <Hoa Kumari PA-C - Last Filed: 02/27/25 19:41> Critical Care Time Critical Care Time Critical Care Time: No <Hoa Kumari PA-C - Last Filed: 02/27/25 19:41> Discharge Plan Discharge Clinical Impression: Kidney stone on right side <Amy Benitez APRN - Last Filed: 02/27/25 13:50> Patient Disposition: Home <Amy Benitez APRN - Last Filed: 02/27/25 13:50> Condition: Improved <Amy Benitez APRN - Last Filed: 02/27/25 13:50> Instructions: Kidney Stones (ED), How to Strain Your Urine (ED) <Amy Benitez APRN - Last Filed: 02/27/25 13:50> Additional Instructions: Return to the ER if you experience fever, abdominal pain with nausea and vomiting, you are unable to keep down liquids or solids, or any other symptoms that are concerning to you Remain well hydrated. Over the counter pain medication as needed. Prescribed pain medication as needed. Strain your urine Follow up with your urologist <Amy Benitez APRN - Last Filed: 02/27/25 13:50> Patient Language: Greek <Amy Benitez APRN - Last Filed: 02/27/25 13:50> Prescriptions: New tamsulosin 0.4 mg capsule 0.4 mg PO DAILY 7 Days Qty: 7 0RF hydrocodone-acetaminophen 5-325 mg tablet 1 tablet PO Q6H PRN (Reason: pain) Qty: 20 0RF No Action testosterone cypionate 200 mg/mL oil 300 mg IM DIRECTED Qty: 3 4RF Rx Instructions: Patient to get an injection of 300mg or 1.5ml of Testosterone Cypionate every 2 weeks IM. azithromycin [Zithromax] 250 mg tablet See Rx Instructions PO .COMPLEX Qty: 6 0RF Rx Instructions: take 500 mg today (day 1), then 250 mg for 4 days (days 2-5) PO tadalafil 5 mg tablet 10 mg PO DIRECTED L-Citrulline 600 mg Capsule 3 g PO BID pantoprazole 40 mg tablet,delayed release (DR/EC) 40 mg PO QAM Qty: 30 12RF <Amy Benitez APRN - Last Filed: 02/27/25 13:50> Follow-up/Referrals: Lesly Li MD [Physician] - Dominguez Maldonado MD [Primary Care Provider] - <Amy Benitez APRN - Last Filed: 02/27/25 13:50>
[2025-02-27 13:27] LABS: Hematocrit 50.1 % (42.0-52.0); Hemoglobin 16.5 g/dL (14.0-18.0); Immature Granulocyte Percent A 0.5 % (0-0.5); Lymphocytes Absolute Auto 1.34 K/mm3 (0.9-3.2); Mean Corpuscular HGB Conc 32.9 g/dl (32-36); Mean Corpuscular Hemoglobin 28.1 pg (26-34); Mean Corpuscular Volume 85.2 fl (80-100); Nucleated Red Blood Cells Absolute Auto 0.000 K/mm3 (0.0-0.012); Nucleated Red Blood Cells Perc 0.0 % (0.0-0.2); Platelet Count Result 228 k/mm3 (150-375); Red Blood Count 5.88 M/mm3 (4.6-6.20); White Blood Count 6.2 K/mm3 (4.5-10.0)
[2025-02-27 13:32] LABS: Add Urine Microscopic? YES; Appearance Urine Clear (Clear); Glucose Urine UA Negative (Negative); Leukocyte Esterase Ur Negative LEU/UL (Negative); Nitrate Urine Negative (Negative); Non Pathogenic Casts 0-2; Specific Grav Ur 1.028 (1.001-1.035)
[2025-02-27 14:14] LABS: Alanine Aminotransferase 20 U/L (6-50); Albumin Level 4.4 g/dL (3.5-5.1); Alkaline Phosphatase 48 U/L (38-126); Anion Gap 7 mmol/L (4-12); Aspartate Amino Transferase 28 U/L (17-59); Bilirubin,Total 0.8 mg/dL (0.2-1.3); Blood Urea Nitrogen 14 mg/dL (9-20); Calcium 9.0 mg/dL (8.4-10.2); Carbon Dioxide 26 mmol/L (22-30); Chloride 105 mmol/L (98-107); Estimated CRCL calculation 75 ml/min; Estimated Glomerular Filt Rate > 60; Glucose 118 mg/dL (65-110); Lipase 73 U/L (23-300); Potassium 4.2 mmol/L (3.4-5.0); Sodium 138 mmol/L (137-145); Total Protein 7.6 g/dL (6.3-8.2)
--- OUTSIDE RECORDS SUMMARY | 2025-02-27 14:22 | XMS_ITS | Continuity of Care Document ---
Author Organization [facility] Address [address] [place] [address] Phone Care Team Providers Care Roll Edge Machine Operator Name Role Phone Nurse, Registered Unavailable Unavailable [...] Diagnoses Date Provider Providers Copied on Encounter [facility] , [address], [id number], tel:[phone] COVID Mobile COVID (chief complaint) No Information Nurse Registered . [address], [id number], . tel:[phone] [facility] , [address] [place] [address], [id number], tel:[phone] COVID Mobile COVID (chief complaint) No Information Nurse Registered . [address], [id number], . tel:[phone] Referring Provider: Jacqueline Sotelo, [facility] [address] [place] [address], [address]. tel:[phone] [facility] , [address], [id number], tel:[phone] COVID Mobile COVID (chief complaint) No Information Ashleigh Phillips. [address], [place], [place], [id number], [place]. tel:[phone] Referring Provider: Jacqueline Sotelo, [address], [place], [address]. tel:[phone] Family History Family Member Type Diagnosis Age [...] Record Payers Payer name Insurance type Covered alliance party ID Authoriza tion(s) [facility] CI [id number] [facility] CI [id number] [facility] CI [id number] Social History Type Description Quantity Date Captured Comments Sex Male Smoking Status No Information Chief Complaint And Reason For Visit From encounter dated '08/22/2021 09:00'. COVID (chief complaint). Description: COVID-19 Moderna [id number] Administered New 08/23/2021 08/22/2021 11:52 AM Don Tejada 0.25 [id number] Booster 10/28/2021 [employer] Intramuscular Left Deltoid Pt tolerated well admin by Don Mixon MA, Celsey (08/23/2021) Reason For Referral Reason For Referral No Information History Of Present Illness Encounter Date Complaint History Of Prese nt Illness COVID COVID-19 Moderna 207 [id number] Administered New 08/23/2021 08/22/2021 11:52 AM Don Tejada 0.25 [id number] Booster 10/28/2021 [employer] Intramuscular Left Deltoid Pt tolerated well admin by Don Mixon MA, Celsey (08/23/2021) COVID COVID-19 [employer] 207 [id number] Administered New 12/14/2020 12/14/2020 02:38 PM Don Tejada 0.5 [id number] Dose 2 05/07/2021 [employer] Intramuscular Left Deltoid Pt tolerated well administered by Marina Trevizo RN, Celsey Brown, Celsey (12/14/2020) COVID COVID-19 [employer] 207 [id number] Administered New 11/16/2020 11/16/2020 04:59 PM Teena Alejandro LPN 0.5 [id number] Dose 1 04/25/2021 [employer] Intramuscular Left Deltoid Pt tolerated well administered by Don Booker LPN, Celsey (11/16/2020) Functional Status Date Functional Assessmen t No Information Instructions Date Instruction Additional Infor mation No Information Assessments Type Assessment Date No Information Patient Care Teams Name Effective Dates (start - stop) Status Members No Information
--- OUTSIDE RECORDS SUMMARY | 2025-02-27 14:22 | XMS_ITS | Clinical Summary ---
Author Organization [facility] [place] Address [address] [place] [address] Care Team Providers Care Cardboard Inserter Name Role Phone Unknown, Provider Primary Care Provider Unavaila ble Source Comments [facility] [place],non-owned Affiliates and Associated Physician Practices is amultiple site organization consisting of ambulatory clinics and hospital sitesin [place], [place] and [place]. This disclosure is being madepursuant to the Care Everywhere program and may not contain all information available regarding this patient. Last updated 18.[facility] Allergies No known active allergies Medications * Be aware that medications may not be up to date on this document. Alwaysverify current medications with the patient. 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
[2025-02-27] MEDS: MORPHINE SULFATE (*CRX) 4 MG/ML INJ IV PUSH (17:48)
[2025-02-27] MEDS: ONDANSETRON INJ 4 MG/2 ML VIAL IV PUSH (17:48)
[2025-02-27] MEDS: KETOROLAC 15 MG/ML VIAL (*BKC) IV PUSH (18:28)
[2025-02-27] MEDS: HYDROcodone/acetaminophen (*CRX) 5-325 MG TABLET 1 TAB PO (19:36)
== END 2025-02-27 19:58 | disposition home or self-care (01) ==
PROVIDERS: Registered Nurse; Emergency Provider Physician Assistant; PCP Family Medicine
DX: N20.0 Calculus of kidney (principal)
CPT/HCPCS: 36415; 74177; 80053; 81001; 83690; 85025; 96374; 96375; 99284; A9270; J1885; J2270; J2405; Q9967